=== PATIENT | female | born 1975 | race Caucasian/White ===

== ENCOUNTER → 2018-08-02 | Outpatient (CLI) | payer OTHER ==
[~2018-08-02] MED LIST: ACET500 PO; ALBU90OI INH; ALBU90OI6 INH; AMIT25 PO; AMPDEX10 PO; ARIP10; ARIP10 PO; ATOM40 PO; AZIT250 PO; AZIT500 PO; Abilify2 MG PO; BECL80OI INH; BENZ100A PO; CARI350 PO; CEPH500 PO; CYCL10 PO; Cleocin HCl300 MG PO; DIAZ5 PO; DIPATR PO; DIPH50 PO; DULO60 PO; ERYT.5TO OU; FAMO20 PO; HYDACE5 PO; HYDHCL25 PO; IBUP400 PO; IBUP600 PO; IBUP800 PO; KETO10 PO; LAMO100 PO; LAMO25; LAMO25 PO; LOPE2C PO; LORA.5 PO; LORA10ER PO; METCAR750 PO; NAPR220 PO; NAPR500 PO; NITR100CA PO; Naprosyn500 MG PO; ONDA4 PO; PHENA100 PO; PHENA200 PO; PRED1; PRED20 PO; PREDNISONE PO; PROM25 PO; Percocet 10-321 EACH PO; Peridex480 ML SS; Prednisone20 MG PO; RXTRAM50 PO; SERT25 PO; SERT50 PO; SULTRIDS PO; TRAM50 PO; TRIA80TC TOP; Ultram50 MG PO; VALERIAN ROOT; ZOLP10 PO
[2018-08-04 03:12] LABS: CHLAMYDIA TRACHOMATIS, NAA Negative (Negative); NEISSERIA GONORRHOEAE, NAA Negative (Negative)
== END | disposition home or self-care (01) ==
LOC: LAB SHORT 09:21 → LAB 09:21
PROVIDERS: Nurse Practitioner Family
DX: Z11.3 Encounter for screening for infections with a predominantly sexual mode of transmission (principal); N88.9 Noninflammatory disorder of cervix uteri, unspecified
CPT/HCPCS: 87491; 87591; G0145